=== PATIENT | female | born 1995 | race African-American/Black ===

== ENCOUNTER 2017-02-08 21:05 | Emergency (ER) | payer SELFPAY ==
[~2017-02-08 21:05] MED LIST: PROVHFA INH; QVAR 80 MCG80 MCG INH
== END 2017-02-08 21:48 | disposition home or self-care (01) ==
LOC: ER 21:05
DX: L30.9 Dermatitis, unspecified (principal); Z91.013 Allergy to seafood; Z91.040 Latex allergy status; Z91.018 Allergy to other foods; Z79.899 Other long term (current) drug therapy
CPT/HCPCS: 96372; 99282; A9270-GY